=== PATIENT | female | born 1955 | race Hispanic/Latino ===

== ENCOUNTER 2023-12-05 07:33 | Observation (INO) | payer MEDICARE ==
[~2023-12-05] VITALS: Ht 149.9 cm; Wt 145.8 kg
[2023-12-05] VITALS (7 sets, daily range): BP systolic 95–125; BP diastolic 53–71; PULSE 73–81; RESP 18–20; O2SAT 94–96
[2023-12-05 08:28] LABS: BASOPHILS # (AUTO) 0.05 K/uL (0.00-0.20); BASOPHILS % (AUTO) 0.4 % (0.0-5.0); EOSINOPHILS # (AUTO) 0.13 K/uL (0.00-0.70); HEMATOCRIT 37.6 % (36-48); IMMATURE GRANULOCYTE ABSOLUTE 0.11 K/uL (0-1); LYMPHOCYTES # (AUTO) 1.8 K/uL (1.0-4.8); LYMPHOCYTES % (AUTO) 13.7 % (21.0-51.0); MEAN CORPUSCULAR HEMOGLOBIN 27.1 pg (27.0-33.0); MEAN CORPUSCULAR HGB CONC 31.1 g/dL (32.0-36.0); MEAN CORPUSCULAR VOLUME 87.2 fL (79-99); MONOCYTES # (AUTO) 0.9 K/uL (0.1-1.0); MONOCYTES % (AUTO) 6.8 % (3.0-13.0); NEUTROPHILS % (AUTO) 77.3 % (40.0-77.0); PLATELET COUNT (AUTO) 186 K/uL (130-400); RED BLOOD CELL COUNT(AUTO) 4.31 MIL/uL (4.00-5.50)
[2023-12-05 08:45] LABS: CREATININE 1.2 mg/dL (0.5-1.0); POTASSIUM 4.4 mmol/L (3.5-5.1)
[2023-12-05 08:53] LABS: INR 1.15 (0.85-1.15); PROTHROMBIN TIME 13.4 SEC (9.6-11.6)
[2023-12-05] MEDS ORDERED: AMIODARONE 900MG VIAL 900 MG in DEXTROSE 5%-WATER 500 ML IV SCH (09:30)
[2023-12-05 09:53] LABS: ALBUMIN 2.8 g/dL (3.5-5.0); CREATININE 1.2 mg/dL (0.5-1.0); MAGNESIUM 1.7 mg/dL (1.80-2.40); POTASSIUM 4.5 mmol/L (3.5-5.1); THYROID STIMULATING HORMONE 1.69 uIU/mL (0.36-3.74); TOTAL PROTEIN, SERUM 7.4 g/dL (6.0-8.3)
[2023-12-05] MEDS: 0.9%NACL 1000ML 1,000 ML IV SCH (10:09)
[2023-12-05] MEDS ORDERED: RIVA20TA PO (10:16)
[2023-12-05] MEDS ORDERED: BUPR-49 PO (10:16)
[2023-12-05] MEDS ORDERED: [UNRECOGNIZED DRUG - OTHER] (10:16)
[2023-12-05] MEDS ORDERED: ESCI20TA38 PO (10:25)
[2023-12-05] MEDS ORDERED: LISI2.5T13 PO (10:25)
[2023-12-05] MEDS ORDERED: METO-409 PO (10:25)
[2023-12-05] MEDS ORDERED: DIGO62.53 PO (10:25)
[2023-12-05] MEDS ORDERED: TRAZ-185 PO (10:25)
[2023-12-05] MEDS ORDERED: SPIR50TA PO (10:25)
[2023-12-05] MEDS ORDERED: FURO40TA5 PO (10:25)
[2023-12-05] MEDS ORDERED: ATOR10TA69 PO (10:25)
[2023-12-05] MEDS: AMIODARONE 360MG/200ML D5W(1MG/MIN) IV SCH (10:29)
[2023-12-05] MEDS: AMIODARONE 150MG VIAL 150 MG in DEXTROSE 5%-WATER 100 ML IV ONE (10:40)
[2023-12-05] MEDS: AMIODARONE 540 MG/D5W 300ML (0.5MG/MIN) IV SCH (16:47)
[2023-12-05] MEDS: TRAZODONE HCL 50 MG TAB PO SCH (20:50)
[2023-12-05] MEDS: ATORVASTATIN 10 MG TABLET PO SCH (20:50)
[2023-12-05] MEDS: FUROSEMIDE 40 MG TABLET PO SCH (20:50)
[2023-12-05] MEDS: LISINOPRIL 2.5 MG TABLET PO SCH (22:31)
[2023-12-06 00:50] VITALS: BP 123/49; PULSE 84; RESP 18
[2023-12-06 04:30] VITALS: BP 112/49; PULSE 86; RESP 18
[2023-12-06 07:00] VITALS: BP 87/58; PULSE 95; RESP 22
[2023-12-06 08:00] VITALS: O2SAT 95
[2023-12-06 08:31] LABS: BASOPHILS # (AUTO) 0.04 K/uL (0.00-0.20); BASOPHILS % (AUTO) 0.3 % (0.0-5.0); EOSINOPHILS # (AUTO) 0.14 K/uL (0.00-0.70); EOSINOPHILS % (AUTO) 1.1 % (0.0-8.0); HEMATOCRIT 33.6 % (36-48); IMMATURE GRANULOCYTE ABSOLUTE 0.11 K/uL (0-1); LYMPHOCYTES # (AUTO) 1.3 K/uL (1.0-4.8); LYMPHOCYTES % (AUTO) 10.3 % (21.0-51.0); MEAN CORPUSCULAR HEMOGLOBIN 26.9 pg (27.0-33.0); MEAN CORPUSCULAR HGB CONC 31.3 g/dL (32.0-36.0); MEAN CORPUSCULAR VOLUME 85.9 fL (79-99); NEUTROPHILS # (AUTO) 10.2 K/uL (1.8-7.7); NEUTROPHILS % (AUTO) 79.4 % (40.0-77.0); PLATELET COUNT (AUTO) 167 K/uL (130-400); RED BLOOD CELL COUNT(AUTO) 3.91 MIL/uL (4.00-5.50); RED CELL DISTRIBUTION WIDTH 17.9 % (11.0-15.5); WHITE BLOOD COUNT (AUTO) 12.8 K/uL (4.8-10.8)
[2023-12-06 08:38] LABS: CREATININE 1.1 mg/dL (0.5-1.0); POTASSIUM 3.8 mmol/L (3.5-5.1)
[2023-12-06] MEDS ORDERED: DIGOXIN 0.25 MG PO SCH (09:00)
[2023-12-06 11:00] VITALS: BP 111/47; PULSE 74; RESP 22
[2023-12-06] MEDS ORDERED: PROPOFOL 10 MG/ML 20ML VIAL IV ONE (12:18)
[2023-12-06] MEDS ORDERED: LIDOCAINE PF 100MG/5ML (2%) SYRINGE 5ML ONE (12:18)
[2023-12-06] MEDS: CITALOPRAM 20 MG TABLET PO SCH (14:08)
[2023-12-06] MEDS: BUPROPION HCL 150 MG TABLET.SA PO SCH (14:08)
[2023-12-06] MEDS: AMIODARONE 200 MG TABLET PO ONE (14:08)
[2023-12-06] MEDS: SPIRONOLACTONE 25 MG TAB PO SCH (14:09)
[2023-12-06] MEDS: METOPROLOL SUCCINATE 50 MG TAB.SR.24H PO SCH (14:10)
[2023-12-06] MEDS: RIVAROXABAN 20 MG TABLET PO SCH (14:10)
[2023-12-06] MEDS ORDERED: AMIO200T68 PO (14:17)
[2023-12-06 16:00] VITALS: BP 98/56; PULSE 74; RESP 20
[2023-12-07] MEDS ORDERED: AMIODARONE 200 MG TABLET PO SCH (09:00)
== END 2023-12-06 14:12 | disposition home or self-care (01) ==
LOC: EDH 07:33 → EDHIP 09:11 → 2DH 10:46
PROVIDERS: ADMIT Internal Medicine Cardiovascular Disease; ATTEND Internal Medicine Cardiovascular Disease
DX: I48.19 Other persistent atrial fibrillation (principal); I42.8 Other cardiomyopathies; I49.5 Sick sinus syndrome; E66.01 Morbid (severe) obesity due to excess calories; I10 Essential (primary) hypertension; G47.33 Obstructive sleep apnea (adult) (pediatric); F32.A Depression, unspecified; E11.9 Type 2 diabetes mellitus without complications; E78.00 Pure hypercholesterolemia, unspecified; Z95.0 Presence of cardiac pacemaker; Z79.899 Other long term (current) drug therapy
CPT/HCPCS: 96365; 96366 ×2; 99285; 84443; 82550; 83735; 84484; 80053; 85025 ×2; 85610; 85730; 82948; 84439; 36415 ×2; 71045; 93005 ×2; 92960; 80048; G0378 ×28; J7060 ×3; J0282 ×3; J2001; J2704; J3490